=== PATIENT | female | born 1965 | race Caucasian/White ===

== ENCOUNTER 2017-04-27 23:21 | Emergency (ER) | payer OTHER ==
[2017-04-27] MEDS ORDERED: ONDANSETRON ODT 4 MG TABLET TL STA (23:37)
[2017-04-27] MEDS ORDERED: INSULIN REGULAR HUMAN 100 UNIT/1 ML 10 ML MDV SUBQ ONE (23:37)
[2017-04-28] MEDS ORDERED: ONDANSETRON ODT 4 MG TABLET ONE (00:04)
[2017-04-28] MEDS ORDERED: INSULIN REGULAR HUMAN 100 UNIT/1 ML 10 ML MDV ONE (00:04)
[2017-04-28 00:07] LABS: BILIRUBIN,URINE NEGATIVE (NEGATIVE)
[2017-04-28 00:09] LABS: BASOPHILS % (AUTO) 0.6 %; EOSINOPHILS % (AUTO) 0.6 %; HCT - HEMATOCRIT 42.5 % (37.0-47.0); HGB - HEMOGLOBIN 14.2 g/dL (12.0-16.0); LYMPHOCYTES # (AUTO) 2.4 10^3/uL (1.5-3.5); LYMPHOCYTES % (AUTO) 33.4 %; MEAN CORPUSCULAR HEMOGLOBIN 28.5 pg (27.0-31.0); MEAN CORPUSCULAR HGB CONC 33.3 g/dL (32.0-36.0); MEAN CORPUSCULAR VOLUME 85.7 fL (81.0-99.0); MEAN PLATELET VOLUME 8.8 fL (7.9-10.8); MONOCYTES # (AUTO) 0.5 10^3/uL (0.0-1.0); MONOCYTES % (AUTO) 7.3 %; NEUTROPHILS # (AUTO) 4.2 10^3/uL (1.5-6.6); NEUTROPHILS % (AUTO) 58.1 %; RED BLOOD COUNT 4.96 10^6/uL (4.20-5.40); RED CELL DISTRIBUTION WIDTH 17.1 % (12.0-15.0); UNCORRECTED WHITE BLOOD COUNT 7.3 x10^3/uL; WHITE BLOOD COUNT 7.3 x10^3/uL (4.8-10.8)
[2017-04-28 00:13] LABS: UA CHARGE (STRIP ONLY) YES; UR CULTURE IF IND NOT INDICATED
[2017-04-28 00:20] LABS: ALBUMIN/GLOBULIN RATIO 1.7 (1.0-2.2); BILIRUBIN,TOTAL 0.4 mg/dL (0.2-1.0); CALCIUM 10.1 mg/dL (8.5-10.3); CREATININE 0.8 mg/dL (0.4-1.0); POTASSIUM 4.2 mmol/L (3.5-5.0); TOTAL PROTEIN 7.4 g/dL (6.7-8.2)
[2017-04-28 00:55] LABS: HEMOGLOBIN A1C 1.26 g/dL
--- NOTE | 2017-04-28 01:19 | ED Physician Documentation ---
History of Present Illness - Stated complaint Stated Complaint: HIGH BLOOD SUGAR - Chief complaint Chief Complaint: General - History obtained from History obtained from: Patient, Family - History of Present Illness Timing: How many days ago (3) - Additonal information Additional information: Patient is a 51 year old female with a history of diabetes who is presenting to the emergency department for elevated blood sugars. Patient states that over the last few days they have been elevated over three hundred and into the 400s. Patient states that she called the nurse hotline who told her she should come get checked out. Patient denies any current complaints and denies any change in diet or medication. patient had not taken her night medications at this point yet. Review of Systems Constitutional: denies: Fever, Chills Eyes: denies: Decreased vision, Photophobia Ears: reports: Reviewed and negative Nose: reports: Reviewed and negative Throat: reports: Reviewed and negative Cardiac: denies: Chest pain / pressure, Palpitations Respiratory: reports: Reviewed and negative GI: reports: Nausea. denies: Abdominal Pain, Abdominal Swelling, Vomiting, Constipation, Diarrhea : reports: Frequency. 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 - Present Medications Home Medications: Ambulatory Orders Medication Instructions Recorded Confirmed Atorvastatin [Lipitor] 20 mg PO QPM 02/12/17 04/27/17 Fexofenadine HCl [Sara Allergy] 180 mg PO DAILY 02/12/17 04/27/17 Gabapentin 300 mg PO DAILY MDD AM 02/12/17 04/27/17 Gabapentin 600 mg PO QPM 02/12/17 04/27/17 Insulin Detemir [Levemir] 15 units SQ DAILY MDD AM DOSE 02/12/17 04/27/17 Insulin Detemir [Levemir] 26 units SQ DAILY PM 02/12/17 04/27/17 Levothyroxine Sodium [Synthroid] 50 mcg PO DAILY 02/12/17 04/27/17 Melatonin 3 mg PO QPM 02/12/17 04/27/17 Montelukast [Singulair] 10 mg PO QPM 02/12/17 04/27/17 Sertraline [Zoloft] 150 mg PO DAILY 02/12/17 04/27/17 cloNIDine HCl [Clonidine HCl] 0.1 mg PO DAILY PM 02/12/17 04/27/17 lamoTRIgine [Lamictal Xr] 100 mg PO QPM 02/12/17 04/27/17 traMADol [Ultram] 50 mg PO Q6HR PRN 02/12/17 04/27/17 Ascorbic Acid [Vitamin C] 1 tab PO DAILY 04/27/17 04/27/17 Ondansetron Odt [Zofran] 4 mg TL Q6H PRN #14 tablet 04/28/17 - Allergies Allergies/Adverse Reactions: Allergies Allergy/AdvReac Type Severity Reaction Status Date / Time No Known Drug Allergies Allergy Verified 04/27/17 23:32 PD ED PE NORMAL - Vitals Vital signs reviewed: Yes - General General: Alert and oriented X 3, No acute distress - HEENT HEENT: Atraumatic, PERRL, Pharynx benign - Neck Neck: Supple, no meningeal sign, No JVD - Cardiac Cardiac: RRR, No murmur - Respiratory Respiratory: No respiratory distress - Abdomen Abdomen: Soft, Non tender, Non distended - Derm Derm: Normal color, Warm and dry, No rash - Extremities Extremities: No deformity, Normal ROM s pain, No edema - Neuro Neuro: Alert and oriented X 3, No motor deficit, No sensory deficit, Normal speech - Psych Psych: Normal mood, Normal affect PD ED PE EXPANDED - HEENT HEENT: Dry mucous membranes Results - Vitals Vitals: Vital Signs - 24 hr 04/27/17 04/28/17 23:30 01:30 Temperature 36.6 C Heart Rate 81 79 Respiratory 18 16 Rate Blood Pressure 161/78 H 149/78 H O2 Saturation 99 98 Oxygen O2 Source Room air - Labs Labs: Laboratory Tests 04/27/17 04/27/17 04/28/17 23:32 23:40 00:00 WBC 7.3 RBC 4.96 Hgb 14.2 Hct 42.5 MCV 85.7 MCH 28.5 MCHC 33.3 RDW 17.1 H Plt Count 230 MPV 8.8 Neut # 4.2 Lymph # 2.4 [place] # 0.5 Eos # 0.0 Baso # 0.0 Absolute Nucleated RBC 0.00 Nucleated RBC % 0.0 Sodium Potassium Chloride Carbon Dioxide Anion Gap BUN Creatinine Estimated GFR (MDRD) Glucose POC Whole Bld Glucose 432 H Glycated Hemoglobin Estim Average Glucose Calcium Total Bilirubin AST ALT Alkaline Phosphatase Total Protein Albumin Globulin Albumin/Globulin Ratio Lipase Urine Color YELLOW Urine Clarity CLEAR Urine pH 6.0 Ur Specific [place] 1.010 Urine Protein NEGATIVE Urine Glucose (UA) >=1000 H Urine Ketones NEGATIVE Urine Occult Blood NEGATIVE Urine Nitrite NEGATIVE Urine Bilirubin NEGATIVE Urine Urobilinogen 0.2 (NORMAL) Ur Leukocyte Esterase NEGATIVE Ur Microscopic Review NOT INDICATED Urine Culture Comments NOT INDICATED 04/28/17 04/28/17 04/28/17 00:00 00:00 01:18 WBC RBC Hgb Hct MCV MCH MCHC RDW Plt Count MPV Neut # Lymph # [place] # Eos # Baso # Absolute Nucleated RBC Nucleated RBC % Sodium 137 Potassium 4.2 Chloride 100 L Carbon Dioxide 25 Anion Gap 12.0 BUN 21 H Creatinine 0.8 Estimated GFR (MDRD) 75 L Glucose 392 H POC Whole Bld Glucose 297 H Glycated Hemoglobin 9.8 H Estim Average Glucose 235 H Calcium 10.1 Total Bilirubin 0.4 AST 21 ALT 25 Alkaline Phosphatase 67 Total Protein 7.4 Albumin 4.7 Globulin 2.7 Albumin/Globulin Ratio 1.7 Lipase 43 Urine Color Urine Clarity Urine pH Ur Specific [place] Urine Protein Urine Glucose (UA) Urine Ketones Urine Occult Blood Urine Nitrite Urine Bilirubin Urine Urobilinogen Ur Leukocyte Esterase Ur Microscopic Review Urine Culture Comments PD MEDICAL DECISION MAKING - ED course Complexity details: reviewed old records, reviewed results, re-evaluated patient , considered differential, d/w patient, d/w family ED course: Patient was seen and examined at bedside. patient was in no distress but bedside glucose was over 400. Patient stated that she did not want an IV but agreed to oral hydration. patient was treated with 5 units insulin and labs were drawn. Urine was collected. Patient was treated with zofran. Patient was able to drink two liters of fluid. Patient's labs were within normal limits. Patient's repeat blood glucose was 297. Patient and family were made aware of the findings. Patient required no further work up and was stable for discharge with outpatient follow up. Departure - Departure Disposition: Home, Self Care Clinical Impression: Hyperglycemia due to type 2 diabetes mellitus Condition: Good Instructions: ED Hyperglycemia Diabetic Follow-Up: primary,care provider [Other] - Within 1 week Prescriptions: Ondansetron Odt [Zofran] 4 mg TL Q6H PRN #14 tablet PRN Reason: Nausea / Vomiting Comments: Your diagnostics today revealed uncontrolled high blood sugar. It is important to monitor your blood glucose levels this week and bring a list to your appointment on saturday. You will likely need a change in your current management. You will have to be very careful with your diet over the next week and you should try to increase the amount you exercise if possible. You can return to the emergency department at any time for new worsening or uncontrollable symptoms. Discharge Date/Time: 04/28/17 01:33
[2017-04-28 01:31] VITALS: BP 149/78
== END 2017-04-28 01:33 | disposition home or self-care (01) ==
LOC: ED 23:21
DX: E11.65 Type 2 diabetes mellitus with hyperglycemia (principal); Z79.4 Long term (current) use of insulin
CPT/HCPCS: 36415; 80053; 81003; 83036; 83690; 85025; 96372; 99283; Q0162; 81001; 87086

== ENCOUNTER 2023-10-24 06:35 | Emergency (ER) | payer OTHER ==
[2023-10-24 07:08] LABS: BILIRUBIN,URINE NEGATIVE (NEGATIVE); GLUCOSE, URINE (UA) 500 mg/dL (NEGATIVE); KETONES,URINE (UA) 15 mg/dL (NEGATIVE); LEUKOCYTE ESTERASE, URINE NEGATIVE (NEGATIVE); NITRITE,URINE NEGATIVE (NEGATIVE); OCCULT BLOOD,URINE LARGE (NEGATIVE); PH,URINE 6.5 PH (5.0-7.5); PROTEIN,URINE NEGATIVE (NEGATIVE); UROBILINOGEN,URINE 0.2 (NORMAL) E.U./dL (NORMAL)
[2023-10-24 07:14] LABS: CLARITY,URINE HAZY (CLEAR)
[2023-10-24 07:17] LABS: BASOPHILS % (AUTO) 0.3 %; HCT - HEMATOCRIT 42.6 % (37.0-47.0); HGB - HEMOGLOBIN 14.3 g/dL (12.0-16.0); LYMPHOCYTES % (AUTO) 8.1 %; MEAN CORPUSCULAR HEMOGLOBIN 30.1 pg (27.0-31.0); MEAN CORPUSCULAR HGB CONC 33.6 g/dL (32.0-36.0); MEAN CORPUSCULAR VOLUME 89.7 fL (81.0-99.0); MEAN PLATELET VOLUME 10.9 fL (7.9-10.8); MONOCYTES # (AUTO) 0.3 10^3/uL (0.0-1.0); MONOCYTES % (AUTO) 2.7 %; NEUTROPHILS # (AUTO) 10.8 10^3/uL (1.5-6.6); NEUTROPHILS % (AUTO) 88.5 %; PLT - PLATELET COUNT 244 10^3/uL (130-450); RED BLOOD COUNT 4.75 10^6/uL (4.20-5.40); RED CELL DISTRIBUTION WIDTH 12.3 % (12.0-15.0); WHITE BLOOD COUNT 12.2 x10^3/uL (4.8-10.8)
[2023-10-24 07:20] LABS: BACTERIA,URINE Rare /HPF (None Seen); SQUAMOUS EPITHELIAL CELL,UR RARE Squamous (<= Few)
--- NOTE | 2023-10-24 07:21 | ED Physician Documentation ---
PD HPI ABD PAIN - Stated complaint Stated Complaint: ABD/BACK PX - Chief complaint Chief Complaint: Abd Pain - History obtained from History obtained from: Patient - History of Present Illness Timing - onset: Yesterday (onset abruptly about 2:30 yesterday afternoon in left flank. Moderate and then has migrated to left back/abd overnight to this morning with increased intensity of pain. consistent pain.) Timing - details: Abrupt onset, Still present, Constant Quality: Aching, Pain Location: LLQ Radiation: Left flank (started in flank) Worsened by: No: Eating, Moving, Position Associated symptoms: Nausea. 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 - Present Medications Home Medications: Ambulatory Orders Medication Instructions Recorded Confirmed Atorvastatin [Lipitor] 20 mg PO QPM 02/12/17 10/24/23 Gabapentin 300 mg PO DAILY MDD AM 02/12/17 10/24/23 Gabapentin 600 mg PO QPM 02/12/17 10/24/23 Insulin Detemir [Levemir] 30 units SQ DAILY MDD AM DOSE 02/12/17 10/24/23 Levothyroxine Sodium [Synthroid] 50 mcg PO DAILY 02/12/17 10/24/23 Melatonin 3 mg PO QPM 02/12/17 10/24/23 Sertraline [Zoloft] 150 mg PO DAILY 02/12/17 10/24/23 lamoTRIgine [Lamictal Xr] 100 mg PO QPM 02/12/17 10/24/23 Cetirizine [ZyrTEC] 10 mg PO DAILY 11/02/22 10/24/23 Insulin Aspart [NovoLOG] 5 units SUBQ DAILYWM 11/02/22 10/24/23 Methylphenidate [Ritalin] 27 mg PO DAILY 11/02/22 10/24/23 Ibuprofen [Motrin] 600 mg PO TID PRN #25 tab 10/24/23 Ondansetron Odt [Zofran] 4 mg TL Q6H PRN #10 tablet 10/24/23 Oxycodone HCl/Acetaminophen 1 each PO Q6H PRN #20 tablet 10/24/23 [Percocet 5-325 mg Tablet] Tamsulosin [Flomax] 0.4 mg PO DAILY #5 cap 10/24/23 - Allergies Allergies/Adverse Reactions: Allergies Allergy/AdvReac Type Severity Reaction Status Date / Time No Known Drug Allergies Allergy Verified 10/24/23 06:47 - Social History Does the pt smoke?: No Smoking Status: Never smoker Does the pt drink ETOH?: No Does the pt have substance abuse?: No - Immunizations Immunizations are current?: No Immunizations: TDAP >10years/unknown - POLST Patient has POLST: No PD ED PE NORMAL - Vitals Vital signs reviewed: Yes - General General: Alert and oriented X 3, Well developed/nourished, Other (appears in considerable pain.) - Cardiac Cardiac: RRR, No murmur - Respiratory Respiratory: No respiratory distress, Clear bilaterally - Abdomen Abdomen: Normal bowel sounds, Soft, Non distended, No organomegaly, Other (mildly tender without guarding left mid to lower abd and particularly in left flank with percussion. ) - Derm Derm: Normal color, Warm and dry Results - Vitals Vitals: Vital Signs - 24 hr 10/24/23 10/24/23 06:43 10:21 Temperature 36.7 C 36.1 C L Heart Rate 97 74 Respiratory 18 18 Rate Blood Pressure 149/78 H 142/77 H O2 Saturation 99 100 Oxygen O2 Source Room air - Labs Labs: Laboratory Tests 10/24/23 10/24/23 10/24/23 07:00 07:03 07:03 WBC 12.2 H RBC 4.75 Hgb 14.3 Hct 42.6 MCV 89.7 MCH 30.1 MCHC 33.6 RDW 12.3 Plt Count 244 MPV 10.9 H Neut # (Auto) 10.8 H Lymph # (Auto) 1.0 L [place] # (Auto) 0.3 Eos # (Auto) 0.0 Baso # (Auto) 0.0 Absolute Nucleated RBC 0.00 Nucleated RBC % 0.0 Sodium 135 Potassium 4.3 Chloride 100 L Carbon Dioxide 26 Anion Gap 9.0 BUN 33 H Creatinine 1.2 Estimated GFR (MDRD) 46 L Glucose 265 H Calcium 9.6 Total Bilirubin 0.6 AST 19 ALT 18 Alkaline Phosphatase 79 Total Protein 7.1 Albumin 4.5 Globulin 2.6 Albumin/Globulin Ratio 1.7 Lipase 23 Urine Color YELLOW Urine Clarity HAZY Urine pH 6.5 Ur Specific [place] 1.020 Urine Protein NEGATIVE Urine Glucose (UA) 500 H Urine Ketones 15 H Urine Occult Blood LARGE H Urine Nitrite NEGATIVE Urine Bilirubin NEGATIVE Urine Urobilinogen 0.2 (NORMAL) Ur Leukocyte Esterase NEGATIVE Urine RBC 11-25 H Urine WBC 4-5 Ur Squamous Epith Cells RARE Squamous Urine Bacteria Rare Ur Microscopic Review INDICATED Urine Culture Comments NOT INDICATED - Rads (name of study) abd/pelvic CT Relevant Findings:: Prelim report reviewed, EMP independent interpretation of test (4 mm stone left mid ureter with moderate hydronephrosis. ) PD Medical Decision Making - ED course Complexity details: reviewed results (CT showing 4 mm stone left mid ureter with hydro. UA with blood but no infection markers. ), re-evaluated patient (improved pain enough with meds x 2 - toradol, dilaudid initially, then IV lido fro stones. given tamsulosin after CT showing size and location of stone. ), considered differential (abrupt onset flank to now flank/left abd pain, consistent, similar to prior remote kidney stones. Has passed 3-4 over years time, without any surgical intervention. ), d/w patient Departure - Departure Disposition: 01 Home, Self Care Clinical Impression: Left sided abdominal pain, Ureterolithiasis Condition: Stable Record reviewed to determine appropriate education?: Yes Instructions: ED Stone Renal W Colic Follow-Up: NEMO GUERRIER MD [Primary Care Provider] - Amaury Crouch MD [Provider Admit Priv/Credential] - Prescriptions: Tamsulosin [Flomax] 0.4 mg PO DAILY #5 cap Ibuprofen [Motrin] 600 mg PO TID PRN #25 tab PRN Reason: Pain Oxycodone HCl/Acetaminophen [Percocet 5-325 mg Tablet] 1 each PO Q6H PRN #20 tablet PRN Reason: pain Ondansetron Odt [Zofran] 4 mg TL Q6H PRN #10 tablet PRN Reason: Nausea / Vomiting Comments: You do have a 4 to 5 mm stone in the lower portion of the left ureter. The radiology report concurs with that and did not see any other obvious acute abnormality. They did comment on possible small cyst in the liver which would be an incidental finding. Stay well-hydrated through the day. I would suggest some regular anti- inflammatory such as ibuprofen 600 mg 3 times a day with food. To that add Tylenol every 4-6 hours if needed for pain or oxycodone/acetaminophen if needed for worse pain (this is fairly common to need stronger pain medicine with kidney stones). Hold your low-dose naltrexone in for the next several days until it seems you have passed the stone. There is no harm or problems with holding that for a few days. In addition we commonly would treat with a medication to reduce ureteral spasms called tamsulosin. Given the location and size of your stone, I would anticipate passage of it completely to the bladder within a day or 2 most commonly but sometimes will longer. Even after it seems like you passed the stone (no further pain etc.), it would be reasonable to continue with the anti-inflammatory and tamsulosin for another 2 or 3 more days to reduce the spasming and irritation of the ureter while it is healing back up. If you seem to have ongoing symptoms beyond several days, you can follow-up with urology. Otherwise if this seems to pass and no further follow-up is needed. I sent your prescriptions to your preferred pharmacy. Return to the ER if severe pain despite the medications. I am prescribing a short course of narcotic pain medication for you. These are potentially dangerous and addictive medications that should be used carefully. These medications may constipate you. Take an [id number] stool softener such as docusate twice daily with plenty of water while taking these medications. If you go 24 hours without a bowel movement, take [id number] MiraLAX, per package instructions. Do not drink or drive while taking these medications. If you received narcotic or sedating medications while in the emergency department do not drive for 24 hours. Store this medication in a safe, secure place and out of reach of children. It is a violation of federal law to give or sell this medication to another person or to use in a manner other than prescribed. The ED will not refill narcotic prescriptions, including prescriptions lost or stolen. You can dispose of unwanted medications at the [facility]'s office or at several pharmacies such as [place]. Forms: PCP List Discharge Date/Time: 10/24/23 10:22
[2023-10-24 07:31] LABS: ALBUMIN 4.5 g/dL (3.2-5.5); ALBUMIN/GLOBULIN RATIO 1.7 (1.0-2.2); BILIRUBIN,TOTAL 0.6 mg/dL (0.2-1.0); CALCIUM 9.6 mg/dL (8.5-10.3); CREATININE 1.2 mg/dL (0.6-1.3); POTASSIUM 4.3 mmol/L (3.5-4.5); TOTAL PROTEIN 7.1 g/dL (6.4-8.9)
[2023-10-24] MEDS: KETOROLAC 15 MG/ML VIAL IVP STA (07:44)
[2023-10-24] MEDS: ONDANSETRON 4 MG/2 ML VIAL IVP STA (07:45)
[2023-10-24] MEDS: HYDROmorphone 1 MG/ML CARPUJECT IVP STA (07:45)
[2023-10-24] MEDS: SODIUM CHLORIDE 0.9% 1,000 ML IV STA (07:45)
[2023-10-24] MEDS ORDERED: iohexoL-300 100 ML VIAL ONE (08:16)
[2023-10-24] MEDS: LIDOCAINE-MPF 2% 5 ML in SODIUM CHLORIDE 0.9% 50 ML IV STA (08:26)
[2023-10-24] MEDS: iohexoL-300 100 ML VIAL IVP ONE (08:40)
--- NOTE | 2023-10-24 09:06 | CT Report ---
PROCEDURE: Abdomen/Pelvis W INDICATIONS: left flank to abd pain, ? stone CONTRAST: OMNI 300 100 ML TECHNIQUE: After the administration of intravenous contrast, a CT scan of the abdomen and pelvis was performed. Images were recorded and evaluated at appropriate window settings. Reformats: coronal and sagittal. F or radiation dose reduction, the following was used: automated exposure control, adjustment of mA and /or kV according to patient size. COMPARISON: None. FINDINGS: Image quality: Diagnostic. Lower chest: Unremarkable. Liver: 1.5 x 1.3 cm hypodensity is noted in posterior segment of right hepatic lobe and contains a ti ny focus of calcification series 2 image 39. Tiny hypodensity is also noted in right hepatic dome too small to characterize series 2 image 24. Gallbladder and biliary tree: No calcified gallstones or gallbladder wall thickening. Spleen: No splenomegaly. Pancreas: No pancreatic ductal dilation. Adrenals: No adrenal nodule. Kidneys and ureters: There is moderate left-sided hydronephrosis and left perinephric fat stranding. 4 mm stone is noted within distal left ureter series 2 image 119, series 4 image 76. Mild to moderate left hydroureter extending to the level of the stone is also seen. No right-sided renal stones or hy dronephrosis. Stomach, bowel and peritoneum: There is no bowel obstruction. No abnormal bowel wall thickening or me senteric fat stranding. No abscess collection. No free fluid of free air. Lymph nodes: No central or retroperitoneal adenopathy. Vessels: No infrarenal aortic aneurysm. PELVIS Reproductive organs: Unremarkable. Bladder: No abnormal wall thickening, accounting for underdistention. Pelvic lymph nodes: No pelvic adenopathy by size criteria. Bones: No aggressive osseous abnormality. Other: No significant ventral or inguinal hernia. IMPRESSION: 1. 4 mm left distal ureteral stone with moderate left-sided hydronephrosis and proximal to mid hydrou reter. Extensive left perinephric fat stranding. No right-sided hydronephrosis or hydroureter. Normal -appearing urinary bladder. 2. No bowel obstruction or abnormal bowel wall thickening. No free fluid of free air. 3. Hypodense area involving posterior right hepatic lobe which may represent hepatic cyst. Tiny hypod ensity also seen in right hepatic dome too small to characterize. Outpatient ultrasound of abdomen ca n be done for further follow-up. Reviewed by: Lev Shepard MD on 10/24/2023 9:05 AM PDT Approved by: Lev Shepard MD on 10/24/2023 9:05 AM PDT Station ID: [id number]
[2023-10-24] MEDS: TAMSULOSIN 0.4 MG CAPSULE PO STA (09:23)
[2023-10-24 10:31] VITALS: BP 142/77; O2SAT 100
== END 2023-10-24 10:22 | disposition home or self-care (01) ==
LOC: ED 06:35
DX: N13.2 Hydronephrosis with renal and ureteral calculous obstruction (principal); Z87.442 Personal history of urinary calculi
CPT/HCPCS: 36415; 74177; 80053; 81001; 83690; 85025; 96374; 96375; 99284; A9270; J1170; J7040; Q9967; 81003; 87086